=== PATIENT | female | born 1985 | race Caucasian/White ===

== ENCOUNTER → 2017-06-12 | Outpatient (CLI) | payer MEDICAID ==
[~2017-06-12] MED LIST: ETODOLAC400 MG PO; HYDROCODONE1 TABLET PO; IBUPROFEN800 MG PO; LEXAPRO 10 MG T10 MG PO; LOPRESSOR 25MG.25 MG PO; LORTAB 5/500 501 TAB PO; NOMEDS; NOMEDS XX; PENICILLIN-VK500 MG PO; TRAMADOL 50MG T50 MG PO; TYLENOL W/CODEI1 TA2 PO; TYLENOL WITH CO1 TAB PO; ZOFRAN4 MG PO; ZOLOFT100 MG PO
--- NOTE | 2017-06-12 11:56 | RADIOLOGY REPORT PS360 ---
EXAM: THORACIC SPINE-3V SWIMMERS HISTORY: MIDLINE THORACIC BACK PAIN COMPARISON: None FINDINGS: There is mild dextroscoliosis of the thoracic spine measuring 12 degrees. No lytic or blastic change. Minimal spurring is present involving the upper thoracic spine. There is very slight decrease in height anteriorly involving what appears to represent T7. This is of unknown chronicity as there are no previous exams available for comparison. Otherwise negative. IMPRESSION: 1. Minimal dextroscoliosis with minimal spondylosis of the thoracic spine. 2. Slight decrease in height anteriorly of T7 which may be chronic. Please correlate clinically. If clinical findings are indeterminate then, MRI with STIR images may be of further value.
== END ==
LOC: RAD 11:09
DX: M54.6 Pain in thoracic spine (principal)